=== PATIENT | male | born 1955 | race American Indian/Alaskan Native ===

== ENCOUNTER 2020-01-07 06:45 | Emergency (ER) | payer BC, OTHER ==
--- NOTE | 2020-01-07 07:51 | Emergency Department Report ---
ED Chest Pain HPI - General Chief Complaint: Chest Pain Stated Complaint: CHEST PAIN, WEAKNESS Time Seen by Provider: 01/07/20 06:56 Source: EMS Mode of arrival: Ambulatory Limitations: No Limitations - History of Present Illness Initial Comments: This is a 64-year-old man who has had a cardiac cath in 2013 at this facility. It showed mild nonobstructive disease only. He had no intervention. He presents with a very atypical story for chest pain of 3 days duration. He reports a left pectoral sharp pain which is intermittent and only of seconds dur ation. He states that sometimes he feels some pain in his left side. Neither complaint is active at the time of my encounter. He denies shortness of breath. He denies cough. He denies fever or chills. He states that he was nauseated earlier and could not "drink water". He admits to stress and anxiety. He states that he has problems with some friends who drink heavily. He admits that 2 nights ago he joined them drinking. He states he made a mistake by doing that because he does not drink anymore. He gives a somewhat rambling history. MD Complaint: chest pain -: days(s) Onset: during rest Pain Location: left chest Pain Radiation: none Severity scale (0 -10): 1 Quality: sharp Consistency: intermittent Improves With: nothing Worsens With: nothing Context: other re: nausea (As per HPI). denies: diaphoresis, dyspnea, sense of impending doom Other Symptoms: denies: cough, fever, syncope, rash, acid taste in mouth, leg swelling, palpitations, burping Treatments Prior to Arrival: none Aspirin use within the Past 7 Days: (0) No - Related Data Home Medications Medication Instructions Recorded Confirmed Last Taken Albuterol Mdi (or & Nicu Only) 2 puff INHALATION Q6H 03/31/14 04/03/14 04/03/14 06:30 [ProAir HFA Inhaler] Febuxostat (Nf) [Uloric (Nf)] 40 mg PO QDAY 03/31/14 04/03/14 04/02/14 Fluticasone/Salmeterol [Advair 1 puff INHALATION BID 03/31/14 04/03/14 04/02/14 Diskus 100-50 mcg] Metoprolol [Lopressor TAB] 25 mg PO BID 03/31/14 04/03/14 04/02/14 Omeprazole [PriLOSEC] 40 mg PO DAILY 03/31/14 04/03/14 04/02/14 Tamsulosin [Flomax] 0.4 mg PO DAILY 03/31/14 04/03/14 04/02/14 amLODIPine 5 mg PO DAILY 03/31/14 04/03/14 04/02/14 Previous Rx's Medication Instructions Recorded Last Taken Type traMADoL [Ultram 50 MG tab] 50 mg PO Q6HR PRN #7 tablet 01/07/20 Unknown Rx Allergies Allergy/AdvReac Type Severity Reaction Status Date / Time No Known Allergies Allergy Verified 04/03/14 06:40 Heart Score - HEART Score History: Slightly suspicious EKG: Normal Age: 45-65 Risk factors: 1-2 risk factors Troponin: < normal limit HEART Score: 2 - Critical Actions Critical Actions: 0-3 pts:0.9-1.7%risk of adverse cardiac event.Candidate for discharge ED Review of Systems ROS: Stated complaint: CHEST PAIN, WEAKNESS Other details as noted in HPI Constitutional: denies: chills, fever Eyes: denies: eye pain, eye discharge, vision change ENT: denies: ear pain, throat pain Respiratory: denies: cough, shortness of breath, wheezing Cardiovascular: as per HPI, chest pain. denies: palpitations Endocrine: no symptoms reported Gastrointestinal: nausea. denies: abdominal pain, diarrhea Genitourinary: denies: urgency, dysuria Musculoskeletal: denies: back pain, joint swelling, arthralgia Skin: denies: rash, lesions Neurological: denies: headache, weakness, paresthesias Psychiatric: anxiety. denies: depression Hematological/Lymphatic: denies: easy bleeding, easy bruising ED Past Medical Hx - Past Medical History Previous Medical History?: Yes Hx Hypertension: Yes Hx GERD: Yes Hx Asthma: Yes Additional medical history: high cholesterol, gout - Surgical History Past Surgical History?: No - Social History Smoking Status: Never Smoker Substance Use Type: None - Medications Home Medications: Home Medications Medication Instructions Recorded Confirmed Last Taken Type Albuterol Mdi (or & Nicu Only) 2 puff INHALATION Q6H 03/31/14 04/03/14 04/03/14 06:30 History [ProAir HFA Inhaler] Febuxostat (Nf) [Uloric (Nf)] 40 mg PO QDAY 03/31/14 04/03/14 04/02/14 History Fluticasone/Salmeterol [Advair 1 puff INHALATION BID 03/31/14 04/03/14 04/02/14 History Diskus 100-50 mcg] Metoprolol [Lopressor TAB] 25 mg PO BID 03/31/14 04/03/14 04/02/14 History Omeprazole [PriLOSEC] 40 mg PO DAILY 03/31/14 04/03/14 04/02/14 History Tamsulosin [Flomax] 0.4 mg PO DAILY 03/31/14 04/03/14 04/02/14 History amLODIPine 5 mg PO DAILY 03/31/14 04/03/14 04/02/14 History traMADoL [Ultram 50 MG tab] 50 mg PO Q6HR PRN #7 tablet 01/07/20 Unknown Rx ED Physical Exam - General Limitations: No Limitations General appearance: alert, in no apparent distress - Head Head exam: Present: atraumatic, normocephalic - Eye Eye exam: Present: normal appearance. Absent: scleral icterus - ENT ENT exam: Present: mucous membranes moist - Neck Neck exam: Present: normal inspection - Respiratory Respiratory exam: Present: normal lung sounds bilaterally. Absent: respiratory distress - Cardiovascular Cardiovascular Exam: Present: regular rate, normal rhythm. Absent: systolic murmur, diastolic murmur, rubs, gallop - GI/Abdominal GI/Abdominal exam: Present: soft, normal bowel sounds. Absent: distended, tenderness, guarding, rebound, rigid - Rectal Rectal exam: Present: deferred - Extremities Exam Extremities exam: Present: normal inspection, normal capillary refill. Absent: pedal edema, joint swelling, calf tenderness - Back Exam Back exam: Present: normal inspection - Neurological Exam Neurological exam: Present: alert, oriented X3, CN II-XII intact. Absent: motor sensory deficit - Psychiatric Psychiatric exam: Present: normal affect, normal mood - Skin Skin exam: Present: warm, dry, intact, normal color. Absent: rash ED Course Vital Signs 01/07/20 01/07/20 01/07/20 06:53 07:00 07:02 Temperature 98.2 F Pulse Rate 90 94 H 99 H Respiratory 10 L 11 L 20 Rate Blood Pressure 121/101 142/91 Blood Pressure 142/91 [Right] O2 Sat by Pulse 99 100 Oximetry 01/07/20 01/07/20 01/07/20 07:16 07:30 07:36 Temperature Pulse Rate 91 H 91 H Respiratory 10 L 10 L 18 Rate Blood Pressure 121/101 121/101 Blood Pressure [Right] O2 Sat by Pulse 99 99 100 Oximetry 01/07/20 01/07/20 01/07/20 07:46 08:00 08:16 Temperature Pulse Rate 88 92 H 97 H Respiratory 9 L 10 L 12 Rate Blood Pressure 121/101 127/91 127/91 Blood Pressure [Right] O2 Sat by Pulse 99 97 99 Oximetry 01/07/20 01/07/20 01/07/20 08:30 08:46 09:00 Temperature Pulse Rate 89 92 H 85 Respiratory 10 L 10 L 10 L Rate Blood Pressure 127/91 127/91 137/88 Blood Pressure [Right] O2 Sat by Pulse 99 98 95 Oximetry 01/07/20 09:16 Temperature Pulse Rate 88 Respiratory 10 L Rate Blood Pressure 137/88 Blood Pressure [Right] O2 Sat by Pulse 98 Oximetry - Reevaluation(s) Reevaluation #1: Patient resting comfortably and asymptomatic. He states he is ready for discharge and he is appropriate. 01/07/20 09:40 TAMY score - Tamy Score Age > 65: (0) No Aspirin use within the Past 7 Days: (0) No 3 or more CAD Risk Factors: (1) Yes 2 or more Angina events in past 24 hrs: (0) No Known CAD with more than 50% Stenosis: (0) No Elevated Cardiac Markers: (0) No ST Deviation Greater than 0.5mm: (0) No TAMY Score: 1 ED Medical Decision Making - Lab Data Result diagrams: 01/07/20 07:37 01/07/20 07:37 Laboratory Results - last 24 hr 01/07/20 01/07/20 01/07/20 07:37 07:37 07:37 WBC 8.1 RBC 5.51 H Hgb 16.4 H Hct 48.2 H MCV 87 MCH 30 MCHC 34 RDW 15.3 H Plt Count 243 Lymph % (Auto) 7.9 L [place] % (Auto) 3.6 Eos % (Auto) 0.0 Baso % (Auto) 0.7 Lymph # 0.6 L [place] # 0.3 Eos # 0.0 Baso # 0.1 Seg Neutrophils % 87.8 H Seg Neutrophils # 7.1 Sodium 136 L Potassium 3.6 Chloride 92.8 L Carbon Dioxide 25 Anion Gap 22 BUN 15 Creatinine 1.0 Estimated GFR > 60 BUN/Creatinine Ratio 15 Glucose 109 H Calcium 9.3 Total Bilirubin 1.10 Direct Bilirubin 0.4 H Indirect Bilirubin 0.7 AST 39 ALT 25 Alkaline Phosphatase 47 Troponin T < 0.010 Total Protein 6.8 Albumin 4.0 Albumin/Globulin Ratio 1.4 Plasma/Serum Alcohol 01/07/20 07:37 WBC RBC Hgb Hct MCV MCH MCHC RDW Plt Count Lymph % (Auto) [place] % (Auto) Eos % (Auto) Baso % (Auto) Lymph # [place] # Eos # Baso # Seg Neutrophils % Seg Neutrophils # Sodium Potassium Chloride Carbon Dioxide Anion Gap BUN Creatinine Estimated GFR BUN/Creatinine Ratio Glucose Calcium Total Bilirubin Direct Bilirubin Indirect Bilirubin AST ALT Alkaline Phosphatase Troponin T Total Protein Albumin Albumin/Globulin Ratio Plasma/Serum Alcohol < 0.01 - EKG Data -: EKG Interpreted by Me EKG shows normal: sinus rhythm, axis (Leftward), intervals, QRS complexes, ST-T waves Rate: normal - EKG Data Interpretation: no acute changes, other (Consider LVH/left atrial enlargement per computer. I do not think it is diagnostic.) - Radiology Data Radiology results: report reviewed (No acute process), image reviewed Critical care attestation.: If time is entered above; I have spent that time in minutes in the direct care of this critically ill patient, excluding procedure time. ED Disposition Clinical Impression: Atypical chest pain, Anxiety Disposition: - TO HOME OR SELFCARE Is pt being admited?: No Does the pt Need Aspirin: No Instructions: Chest Pain (ED), Anxiety (ED) Additional Instructions: Follow-up with your primary care provider. Return to the emergency department any significant and prolonged chest pain or further problem/acute change. [id number] medicine as needed or prescription for tramadol as necessary. Prescriptions: traMADoL [Ultram 50 MG tab] 50 mg PO Q6HR PRN #7 tablet PRN Reason: Pain Referrals: PRIMARY CARE, [Primary Care Provider] - 2-3 Days Time of Disposition: 09:40
[2020-01-07 08:02] LABS: Basophils # (Auto) 0.1 K/mm3 (0.0-0.1); Basophils % (Auto) 0.7 % (0.0-1.8); Hemoglobin 16.4 gm/dl (11.8-15.2); Lymphocytes # (Auto) 0.6 K/mm3 (1.2-5.4); Lymphocytes % (Auto) 7.9 % (13.4-35.0); Monocytes # (Auto) 0.3 K/mm3 (0.0-0.8); Monocytes % (Auto) 3.6 % (0.0-7.3)
--- NOTE | 2020-01-07 08:04 | XRay Report ---
CHEST 1 VIEW INDICATION / CLINICAL INFORMATION: Chest Pain. COMPARISON: 08/25/2007 FINDINGS: SUPPORT DEVICES: None. HEART / MEDIASTINUM: No significant abnormality. LUNGS / PLEURA: No significant pulmonary or pleural abnormality. No pneumothorax. ADDITIONAL FINDINGS: No significant additional findings. IMPRESSION: 1. No acute findings. Signer Name: Mark Swanson MD Signed: 01/07/2020 8:00 AM Workstation Name: [id number]
[2020-01-07 08:09] LABS: BUN/Creatinine Ratio 15; Blood Urea Nitrogen 15 mg/dL (9-20); Calcium 9.3 mg/dL (8.4-10.2); Hematocrit 48.2 % (35.5-45.6); Hemolysis Index 12; Mean Corpuscular HGB Conc 34 % (32-34); Mean Corpuscular Volume 87 fl (84-94); Platelet Count 243 K/mm3 (140-440); Red Blood Count 5.51 M/mm3 (3.65-5.03); Red Cell Distribution Width 15.3 % (13.2-15.2)
[2020-01-07 08:11] LABS: Bilirubin,Direct 0.4 mg/dL (0-0.2)
[2020-01-07 09:22] VITALS: BP 137/88
== END 2020-01-07 09:57 | disposition home or self-care (01) ==
LOC: ED 06:45
DX: R07.89 Other chest pain (principal); F41.9 Anxiety disorder, unspecified; I10 Essential (primary) hypertension; K21.9 Gastro-esophageal reflux disease without esophagitis; J45.909 Unspecified asthma, uncomplicated; Z79.899 Other long term (current) drug therapy
CPT/HCPCS: 36415; 71045; 80048; 80076; 80320; 84484; 85025; 93005; 99283; G0480